=== PATIENT | female | born 1990 | race Caucasian/White ===

== ENCOUNTER 2017-02-06 10:00 | Inpatient (IN) ==
--- OUTSIDE RECORDS SUMMARY | 2017-02-11 | External Medical Summary | Continuity of Care Document ---
:1990 Author Organization [facility] Address [address] [place], [place] [id number] Phone Care Team Providers Name Role Phone Antonietta Hoffman DO Unavailable Unavailable Allergies, Adverse Reactions, Alerts Substance Reaction Severity Status No Known Drug Allergies Unknown Active Medications Medication Instructions Dosage Effective Dates Status Comments (start - stop) OMEPRAZOLE take 2 capsule by - Active (unknown strength) oral route every day before a meal ZANTAC (unknown take 1 tablet by - Active strength) oral route every day at bedtime 28 mg take 1 tablet by Not Available - Active iron-800 mcg oral route every tablet day Problems Condition Effective Dates (start - stop) Clinical Status Pap Smear Screening, Cervix - Encntr for suprvsn of normal first - preg, third trimester 34 weeks gestation of - 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) - (routine) w/o abn findings Pap Smear Screening, Cervix Encntr for suprvsn of normal first - preg, third trimester Type O blood, Rh negative - 32 weeks gestation of - Matern care for oth or susp poor fetl - grth, 2nd tri, unsp 20 weeks gestation of - Matern care for oth or susp poor fetl Mar-27-2017 - grth, 2nd tri, unsp Encntr for suprvsn of normal first - preg, second trimester 16 weeks gestation of - Partial placenta previa NOS or w/out - hemorrhage, third trimester Encntr for suprvsn of normal first - preg, third trimester 34 weeks gestation of - Diseases of the dgstv sys comp , first trimester Encntr screen for infections w sexl - mode of transmiss Encounter for screening for oth - infec/parastc diseases Encntr for suprvsn of normal first - preg, first trimester Encounter for screening of - mother 10 weeks gestation of - Encntr for suprvsn of normal first - preg, first trimester 12 weeks gestation of - Encntr for suprvsn of normal first - preg, first trimester 12 weeks gestation of - Type O blood, Rh negative - Encntr for suprvsn of normal first - preg, second trimester 20 weeks gestation of - Type O blood, Rh negative - Encntr for suprvsn of normal first - preg, second trimester 24 weeks gestation of - Type O blood, Rh negative - Encntr for suprvsn of normal first - preg, third trimester 28 weeks gestation of - Encntr for suprvsn of normal first - preg, third trimester Type O blood, Rh negative - 30 weeks gestation of - Encntr for suprvsn of normal first - preg, third trimester Type O blood, Rh negative - 36 weeks gestation of - Procedures Procedure Date OB Visit No 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 Provider: Dinesh OJYA, first preg, third 7 700 Nikky PO Box trimesterType O Medical Gurinder L, 1522, blood, Rh Center [address] [place] [address], [email or web address] weeks [place] Garrett, gestation of 120, Center , [place], [facility] 120, [place] MAJANO, tel:[phone] [place], , [place]. [id number]. tel: tel:[phone] Jono [place] Encntr for Gurinder Referring In Womens suprvsn of normal 1-201 Nikky. Provider: Dinesh JOYA, first preg, third 7 700 Nikky PO Box [email or web address] weeks Medical Gurinder L, 1522, gestation of Center [address] [place] [address], Mel[place] Garrett, 120, Center [id number], [place], [facility] 120, [place] MAJANO, tel:[phone] [place], , [place]. [id number]. tel: tel:[phone] Jono [place] Partial placenta Gurinder Referring In Womens Ultrasound previa NOS or 1-201 Nikky. Provider: Dinesh JOYA, w/out hemorrhage, 7 700 Nikky PO Box third Medical Gurinder L, 1522, trimesterEncntr Center [address] [place] [address], for suprvsn of Mel[place] Garrett, normal first 120, Center [id number], preg, third [place], [facility] 120, [place] [email or web address] weeks [place] MAJANO, tel:+[phone] gestation of [phone] [place], , [place]. [id number]. tel: tel:[phone] Jono [place] Encntr for Gurinder Referring In Womens suprvsn of normal 9-201 Nikky. Provider: Health PA, first preg, third 7 700 Nikky PO Box trimesterType O Medical Gurinder L, 1522, blood, Rh Center [address] [place] [address], weeks Meliton Garrett, gestation of 120, Center , [place], [facility] 120, [place] MAJANO, tel:[phone] [place], , [place]. [id number]. tel: tel:[phone] Jono [place] Encntr for Mckinley-0 Gurinder Referring In Womens suprvsn of normal 5-201 Nikky. Provider: Health PA, first preg, third 7 700 Nikky PO Box trimesterType O Medical Gurinder L, 1522, blood, Rh Center [address] [place] [address], [email or web address] weeks [place] Garrett, gestation of 120, Center , [place], [facility] 120, [place]JAN[place], tel:[phone] [place], , [place]. [id number]. tel: tel:[phone] Jono [place] Encntr for Gilbert-2 Gurinder Referring In Womens suprvsn of normal 1-201 Nikky. Provider: Health TOAN, first preg, third 7 700 Nikky PO Box [email or web address] weeks Medical Gurinder L, 1522, gestation of Center [address] [place] [address], [place], 120, Center [id number], [facility] [place], tel:+ [phone] [place], , [place]. [id number]. tel: tel:[phone] Jono [place] Encntr for September-2 Gurinder Referring In Womens suprvsn of normal 4-201 Nikky. Provider: Health TOAN, first preg, 7 700 Nikky PO Box second Medical Gurinder L, 1522, [email or web address] weeks Center [address] [place] [address], gestation of DrMeliton, pregnancyType O 120, Center [id number], blood, Rh [place], [facility] 120, [place] negative [place] MAJANO, tel:[phone] [place], , [place]. [id number]. tel: tel: [phone] Jono [place] Encntr for Apr-2 Gurinder Referring In Womens suprvsn of normal 6-201 Nikky. Provider: Dinesh JOYA, first preg, 7 700 Nikky PO Box second Medical Gurinder L, 1522, [email or web address] weeks Center [address] [place] [address], gestation of Meliton Garrett, pregnancyType O 120, Center [id number], blood, Rh [place], [facility] 120, [place] negative [place] MAJANO, tel: [phone] [place], , [place]. [id number]. tel: tel: [phone] Jono [place] Matern care for Apr-2 Gurinder Referring In Womens Ultrasound oth or susp poor 6-201 Nikky. Provider: Dinesh JOYA, fetl grth, 2nd 7 700 Antonietta PO Box tri, [email or web address] weeks Medical [place], 929 1522, gestation of Center [facility], Meliton Garrett, [place], 120, [place], , [place], [address]. [place], tel: tel: [phone] , [place]. tel: [phone] Jono [place] Matern care for Mar-2 Gurinder Referring In Womens oth or susp poor 7-201 Nikky. Provider: Dinesh JOYA, fetl grth, 2nd 7 700 Nikky PO Box tri, unspEncntr Medical Gurinder L, 1522, for suprvsn of [address], normal first [place] Garrett, preg, second 120, [place] [id number], [email or web address] weeks [facility] 120, [place] gestation of [place] MAJANO, tel: [phone] [place], , [place]. [id number]. tel: tel: [phone] Jono [place] Encntr for Feb-2 Gurinder Referring In Womens suprvsn of normal 7-201 Nikky. Provider: Dinesh JOYA, first preg, first 7 700 Nikky PO Box [email or web address] weeks Medical Gurinder L, 1522, gestation of [address], pregnancyType O [place], blood, Rh 120, Center [id number], negative [place] 120, [place] MAJANO, tel:[phone] [place], , [place]. [id number]. tel: tel: [phone] Jono [place] Encntr for Jul- Gurinder Referring In Womens Ultrasound suprvsn of normal 7-201 Nikky. Provider: Health TOAN, first preg, first 7 700 Antonietta PO Box [email or web address] weeks Medical [place], 929 1522, gestation of Center N [facility], Dr, Mel[place], [place], 120, [place], [id number], [place], [address]. [place], tel: tel:[phone] , [place]. tel: [phone] Jono [place] Encntr screen for Jul- Gurinder Referring In Womens infections w sexl 3-201 Nikky. Provider: Dinesh JOYA, mode of 7 700 Nikky PO Box transmissEncounte Medical Gurinder L, 1522, r for screening Center [address] [place] [address], for oth , Psychiatric, infec/parastc 120, [place] [id number], diseasesEncntr [place] [facility] 120, [place] for suprvsn of [place], tel: normal first [phone] [place], preg, first , [place]. [id number]. trimesterEncounte tel: tel:[phone] r for [phone] screening of [email or web address] weeks gestation of Jono [place] Diseases of the Gala Referring In Womens dgstv sys comp 3-201 Nicci. Provider: Dinesh JOYA, , first 7 700 Nikky PO Box trimester Medical Gurinder L, 1522, Center [facility] Dr Jamal, [facility] Liz [place], 120, Center [id number], [place] [facility] 120, [place] MAJANO, tel:[phone] [place], , [place]. [id number]. tel: tel: [phone] Jono [place] Encntr for gaming host Gala Referring In Womens exam (general) 9-201 Nicci. Provider: Health TOAN, (routine) w/o abn 6 700 Nikky PO Box findingsPap Smear Medical Gurinder L, 1522, Screening, Center 700 [place], CervixPap Smear , [facility] Medical [place], Screening, Cervix 120, Center [address] [id number], [place], [facility] , [place], [place], tel: [phone] [place], , [place]. [id number]. tel: tel: [phone] Jono [place] Jul- Gala In Womens Nicci. Health TOAN, 3 700 PO Box Medical 1522, Center [place], , [facility] [place], 120, [id number], [place], [place], tel: [phone] , [place]. tel: [phone] Family History Family Member Diagnosis Age At Onset No Family history of Family history not known. Patient is adopted. Immunizations Vaccine Date Status Comments Tdap completed Source: New Immunization Record Rhophylac completed Source: New Immunization Record Influenza, injectable, completed Source: Source Unspecified quadrivalent, preservative free, 3 yrs or older Payers Payer name Insurance type Covered democrat ID Authorization(s) [facility] [id number] [facility] [id number] [facility] [id number] Social History Type Description Quantity Date Captured Alcohol Use Details Caffeine Use Details Unknown Tobacco Use Status Unknown Smoking Status Never smoker Vital Signs Date / Height Weight BMI Pulse Blood Temperature Respiratory Body Head BMI Time: Rate Pressure Rate Surface Circumference percentile Area Unknown Chief Complaint And Reason For Visit Unknown Chief Complaint And Reason For Visit Reason For Referral Reason For Referral Unknown Plan Of Care Date Type Action Status Goal Lifestyle education regarding completed diet Appointment Darline Marroquin BOOKED Appointment Darline Marroquin BOOKED Appointment Darline Marroquin BOOKED Future Order: Lab Order Pap Smear With HPV Reflex If Ordered ASCUS ([id number]) Future Order: Radiology Order Complete OB Ultrasound > 14 Ordered Weeks ([id number]) Future Order: Radiology Order Ultrasound, OB Limited ([id number]) Ordered Future Order: Radiology Order Nuchal Translucency ([id number]) Ordered Date Type Problem Goal Intervention Status Start Date Unknown. History Of Present Illness Encounter Date Complaint History Of Present Illness This patient has no known history of present illness Functional Status Encounter Date Functional Assessment Cognitive Assessment Unknown Medications Administered Medication Instructions Dosage Effective Dates (start - stop) Status Comments Drug Treatment Unknown Instructions Date Instruction Additional Information sexual activity exercise indications for ultrasound influenza vaccine environmental / work hazards travel tobacco (ask, advise, assess, assist and arrange) alcohol illicit / recreational drugs use of any medications (including supplements, vitamins, herbs, OTC drugs) Acog docs HIV and other routine tests risk factors identified by history anticipated course of care nutrition and weight gain counseling, special diet toxoplasmosis precautions (cats / raw meat) smoking counseling domestic violence seat belt use childbirth classes / hospital facilities hospital registration genetic testing new ob handbook Zika virus assessment & precautions Lifestyle education regarding diet Related to Body mass index 26.0-26.9 Giving encouragement to exercise Related to Body mass index 26.0-26.9
--- OUTSIDE RECORDS SUMMARY | 2017-02-11 | External Medical Summary | Continuity of Care Document ---
:1990 Author Organization [facility] Address [address] [place], [place] [address] Phone Care Team Providers Name Role Phone Antonietta Hoffman DO Unavailable Unavailable Allergies, Adverse Reactions, Alerts Substance Reaction Severity Status No Known Drug Allergies Unknown Active Medications Medication Instructions Dosage Effective Dates Status Comments (start - stop) ZANTAC (unknown take 1 tablet by - Active strength) oral route every day at bedtime 28 mg take 1 tablet by Not Available - Active iron-800 mcg oral route every tablet day Problems Condition Effective Dates (start - stop) Clinical Status Pap Smear Screening, Cervix - Encntr for suprvsn of normal first - preg, third trimester 30 weeks gestation of - Type O blood, Rh negative - 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) - (routine) w/o abn findings Pap Smear Screening, Cervix Type O blood, Rh negative - 32 weeks gestation of - Encntr for suprvsn of normal first - preg, third trimester Matern care for oth or susp poor fetl - grth, 2nd tri, unsp 20 weeks gestation of - Matern care for oth or susp poor fetl - grth, 2nd tri, unsp Encntr for suprvsn of normal first - preg, second trimester 16 weeks gestation of - Diseases of the [...] third trimester 28 weeks gestation of - Procedures Procedure Date OB Visit No Charge Results Test Name Date and Time Measure Units Reference Range Abnormal Flag Comments Unknown Advance Directives Directive Yes / No Effective Date File Name Unknown Encounters Encounter Practice Location Reason(s) Diagnoses Date Provider Care Team Description For Visit Members Jono [place] Type O blood, Rh Gurinder Referring In Womens [email or web address] weeks 9-201 Nikky. Provider: [facility], gestation of 7 700 Nikky PO Box pregnancyEncntr Liz [place] L, 1522, for suprvsn of Center 700 [place], normal first [place] Garrett, preg, third 120, Center [id number], trimester Mel[place] 120, [place] MAJANO, tel:[phone] [place], [address] , [place]. [id number]. tel: tel: [phone] Jono [place] Encntr for Gurinder Referring In Womens suprvsn of normal 5-201 Nikky. Provider: Health PA, first preg, third 7 700 Nikky PO Box [email or web address] weeks Medical Gurinder L, 1522, gestation of [address], pregnancyType O [place], blood, Rh 120, Center , negative [place], [place] 120, [place] MAJANO, tel:[phone] [place], , [place]. [id number]. tel: tel:[phone] Jono [place] Encntr for Gilbert-2 Gurinder Referring In Womens suprvsn of normal 1-201 Nikky. Provider: Health PA, first preg, third 7 700 Nikky PO Box [email or web address] weeks Medical Gurinder L, 1522, gestation of [address], Mel[place] Garrett, 120, Center [id number], [place], [place] 120, [place] MAJANO, tel:[phone] [place], , [place]. [id number]. tel: tel:[phone] Jono [place] Encntr for May-2 Gurinder Referring In Womens suprvsn of normal 4-201 Nikky. Provider: Health PA, first preg, 7 700 Nikky PO Box second Medical Gurinder L, 1522, [id number] weeks [address], gestation of Mel[place] Garrett, pregnancyType O 120, Center [id number], blood, Rh [place], [place] 120, [place] negative [place] MAJANO, tel:[phone] [place], , [place]. [id number]. tel: tel:[phone] Jono [place] Encntr for Apr-2 Gurinder Referring In Womens suprvsn of normal 6-201 Nikky. Provider: Health PA, first preg, 7 700 Nikky PO Box second Medical Gurinder L, 1522, [email or web address] weeks [address], gestation of Meliton Garrett, pregnancyType O 120, Center [id number], blood, Rh [place], [place] 120, [place] negative Ivan MAJANO, tel:[phone] [place], , [place]. [id number]. tel:+[phone] tel: [phone] Jono [place] Matern care for Apr-2 Gurinder Referring In Womens Ultrasound oth or susp poor 6-201 Nikky. Provider: Dinesh JOYA, fetl grth, 2nd 7 700 Antonietta PO Box tri, [email or web address] weeks Medical [place], 929 1522, gestation of Center [facility], Meliton Garrett, [place], 120, [place], [id number], [place], [address]. [place], tel: tel:[phone] , [place]. tel: [phone] Jono [place] Matern care for Mar-2 Gurinder Referring In Womens oth or susp poor 7-201 Nikky. Provider: Dinesh JOYA, fetl grth, 2nd 7 700 Nikky PO Box tri, unspEncntr Medical Gurinder L, 1522, for suprvsn of [address], normal first [place] Garrett, preg, second 120, [place] , [email or web address] weeks [place] [facility] 120, [place] gestation of [place] MAJANO, tel: [phone] [place], , [place]. [id number]. tel: tel: [phone] Jono Fabianntr for Feb-2 Gurinder Referring In Womens suprvsn of normal 7-201 Nikky. Provider: Dinesh JOYA, first preg, first 7 700 Nikky PO Box [email or web address] weeks Medical Gurinder L, 1522, gestation of [address], pregnancyType O [place] Garrett, blood, Rh 120, [place] [id number], negative [place], [place] 120, [place] MAJANO, tel:[phone] [place], , [place]. [id number]. tel: tel: [phone] Jono [place] Encntr for Feb-2 Gurinder Referring In Womens Ultrasound suprvsn of normal 7-201 Nikky. Provider: Dinesh JOYA, first preg, first 7 700 Antonietta PO Box [email or web address] weeks Medical [place], 929 1522, gestation of [facility], Mel[place], [place], 120, [place], [id number], [place], [address]. [place], tel:+ tel:[phone] , [place]. tel: [phone] Jono Fabianntthai screen for Gurinder Referring In Womens infections w sexl 3-201 Nikky. Provider: Dinesh JOYA, mode of 7 700 Nikky PO Box transmissEncounte Medical Gurinder L, 1522, r for screening Center [address] [place] [address], for oth , [facility], infec/parastc 120, [place] [id number], [facility], [place] for suprvsn of [place] MAJANO, tel: normal first [place], preg, first , [place]. [id number]. trimesterEncounte tel: tel: r for [phone] screening of [id number] weeks gestation of Associates [place] Diseases of the Gala Referring In Womens dgstv sys comp 3-201 Nicci. Provider: Dinesh JOYA, , first 7 700 Nikky PO Box trimester Medical Gurinder L, 1522, Center [facility] [place], Dr [facility] Liz MAJANO, 120, [place] [id number], [facility], [place], tel:[phone] [place], , [place]. [id number]. 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 Provider: Dinesh JOYA, (routine) w/o abn 6 700 Nikky PO Box findingsPap Smear [place], 1522, Screening, Center [facility] [place], CervixPap Smear , [facility] Liz [place], Screening, Cervix 120, Center [id number], [place] [facility] 120, [place] MAJANO, tel:[phone] [place], , [place]. [id number]. tel: tel: [phone] Jono [place] Gala In Womens 1-201 Nicci. [facility], 3 700 PO Box [facility] 1522, [place] Dr Jamal, [facility], 120, [id number], [place], [place], tel:-[phone] , [place]. tel: [phone] Family History Family Member Diagnosis Age At Onset No Family history of Family history not known. Patient is adopted. Immunizations Vaccine Date Status Comments Rhophylac completed Source: New Immunization Record Influenza, injectable, completed Source: Source Unspecified quadrivalent, preservative free, 3 yrs or older Payers Payer name Insurance type Covered libertarian ID Authorization(s) [facility] [id number] [facility] [id number] Social History Type Description Quantity Date Captured Alcohol Use Details Caffeine Use Details Unknown Tobacco Use Status Unknown Smoking Status Never smoker Vital Signs Date / Height Weight BMI Pulse Blood Temperature Respiratory Body Head BMI Time: Rate Pressure Rate Surface Circumference percentile Area 3 3:03 kg/m PM eter (2) 161.40 31.5 129/69 -2017 lbs 2 mm[Hg] 3:09 kg/m PM eter (2) Chief Complaint And Reason For Visit Unknown [...] Complete OB Ultrasound > 14 Ordered Weeks ([id number]) Future Order: Radiology Order Nuchal Translucency ([id number]) Ordered Date Type Problem Goal Intervention Status [...] medications (including supplements, vitamins, herbs, OTC drugs) smoking counseling domestic violence Acog docs HIV and other routine tests risk factors identified by history anticipated course of care nutrition and weight gain counseling, special diet toxoplasmosis precautions (cats / raw meat) seat belt use childbirth classes / hospital facilities hospital registration genetic testing new ob handbook Zika virus assessment & precautions Lifestyle education regarding diet Related to Body mass index 26.0-26.9 Giving encouragement to exercise Related to Body mass index 26.0-26.9
--- OUTSIDE RECORDS SUMMARY | 2017-02-11 | External Medical Summary | Continuity of Care Document ---
:1990 Author Organization [facility] Address [address] [place], [place] [phone] Phone Care Team Providers Name Role Phone [...] Pap Smear Screening, Cervix - Encntr for infection prevention practitioner exam (general) - (routine) w/o abn findings Pap Smear Screening, Cervix 32 weeks gestation of - Encntr for suprvsn of normal first - preg, third trimester Type O blood, Rh negative - Encntr for suprvsn of normal first - preg, third trimester 34 weeks gestation of - Matern care for [...] weeks gestation of - [facility] sys [facility] , first trimester Encntr screen for infections w sexl - mode of transmiss Encntr for suprvsn of normal first - preg, first trimester Encounter for screening for oth - infec/parastc diseases Encounter for screening of - mother 10 [...] of normal first - preg, second trimester Type O blood, Rh negative - 24 weeks gestation of - Encntr for suprvsn of normal first - preg, third trimester 28 weeks gestation of - Encntr for suprvsn of normal first - preg, third trimester Type O blood, Rh negative - 30 weeks gestation of - Encntr for suprvsn of normal first - preg, third trimester 36 weeks gestation of - Type O blood, Rh negative - Type O blood, Rh negative - Encntr for suprvsn of normal first - preg, third trimester 37 weeks gestation of - Procedures Procedure Date Unknown Results Test Name Date and Time Measure Units Reference Range Abnormal Flag Comments Unknown Advance Directives Directive Yes / No Effective Date File Name Unknown Encounters Encounter Practice Location Reason(s) Diagnoses Date Provider Care Team Description For Visit Members Jono Love Type O blood, Rh Dec-2 Gurinder Referring In Womens negativeEncntr 3-201 Nikky. Provider: Dinesh JOYA, for suprvsn of 7 700 Nikky [address] normal first Medical Gurinder L, 1522, preg, third Center [address] [place] [address], [email or web address] weeks , [facility] [place], gestation of 120, [place] , Ivan, [facility] 120, Ivan MAJANO, tel:[phone] [place], , [place]. [id number]. tel: tel:[phone] Jono [place] Encntr for Dec- Gurinder Referring In Womens suprvsn of normal 6-201 Nikky. Provider: Dinesh JOYA, first preg, third 7 700 Nikky PO Box [id number] weeks Medical Gurinder L, 1522, gestation of Center [address] [place] [address], pregnancyType O Dr [facility] [place], blood, Rh 120, [place] [id number], negative Ivan [facility] 120, [place] Ivan MAJANO, tel:[phone] [place], , [place]. [id number]. tel: tel:[phone] Jono [place] Dec-0 Gurinder In Womens 7-201 Nikky. Dinesh JOYA, 7 700 PO Box Medical 1522, [address] Dr Jamal [facility] [place], 120, [id number], [place], [place], tel:[phone] , [place]. tel: [phone] Jono [place] Encntr for Nov- Gurinder Referring In Womens suprvsn of normal 1-201 Nikky. Provider: Dinesh JOYA, first preg, third 7 700 Nikky PO Box [email or web address] weeks Medical Gurinder L, 1522, gestation of Center [address] [place] [address], Dr [facility] [place], 120, [place] [id number], Ivan [facility] 120, [place] Ivan MAJANO, tel:[phone] [place], , [place]. [id number]. tel: tel:[phone] Associates [facility] Partial placenta Nov-3 Gurinder Referring In Womens Ultrasound previa NOS or 1-201 Nikky. Provider: Dinesh JOYA, w/out hemorrhage, 7 700 Nikky PO Box third Medical Gurinder L, 1522, trimesterEncntr Center [address] [place] [address], for suprvsn of [place], normal first 120, Center [id number], preg, third Ivan [facility] 120, [place] [email or web address] weeks Ivan MAJANO, tel:+ gestation of [phone] [place], , [place]. [id number]. tel: tel:[phone] [facility] 32 weeks Nov- Gurinder Referring In Womens gestation of 9-201 Nikky. Provider: Dinesh JOYA, pregnancyEncntr 7 700 Nikky PO Box for suprvsn of Medical Gurinder L, 1522, normal first Center [address] [place] [address], preg, third [place], trimesterType O 120, Center [id number], blood, Rh Ivan, [facility] 120, [place] negative Ivan MAJANO, tel:[phone] [place], , [place]. [id number]. tel: tel:[phone] Jono Fabianntthai for Nov-0 Gurinder Referring In Womens suprvsn of normal 5-201 Nikky. Provider: Dinesh JOYA, first preg, third 7 700 Nikky PO Box trimesterType O Medical Gurinder L, 1522, blood, Rh Center [address] [place], [email or web address] weeks [place], gestation of 120, Center [id number], [place], [facility] 120, [place] Ivan MAJANO, tel:[phone] [place], , [place]. [id number]. tel: tel:[phone] Jono Fabianntthai for Gilbert-2 Gurinder Referring In Womens suprvsn of normal 1-201 Nikky. Provider: Dinesh JOYA, first preg, third 7 700 Nikky PO Box weeks Medical Gurinder L, 1522, gestation of Center [address] [place], [place], 120, Center [id number], Ivan, [facility] 120, [place] Ivan MAJANO, tel:[phone] [place], , [place]. [id number]. tel: tel: [phone] Jono [place] Encntr for May-2 Gurinder Referring In Womens suprvsn of normal 4-201 Nikky. Provider: Health TOAN, first preg, 7 700 Nikky PO Box second Medical Gurinder L, 1522, trimesterType O Center 700 [place], blood, Rh [place], [email or web address] weeks 120, [place] [id number], gestation of [facility] 120, [place] Ivan MAJANO, tel:[phone] [place], , [place]. [id number]. tel: tel: [phone] Jono [place] Encntr for Apr-2 Gurinder Referring In Womens suprvsn of normal 6-201 Nikky. Provider: Dinesh JOYA, first preg, 7 700 Nikky PO Box second Medical Gurinder L, 1522, [id number] weeks Center [address] [place], gestation of [place], pregnancyType O 120, [place] [id number], blood, Rh Ivan, [facility] 120, [place] negative Ivan MAJANO, tel:[phone] [place], , [place]. [id number]. tel: tel: [phone] Jono [place] Matern care for Apr-2 Gurinder Referring In Womens Ultrasound oth or susp poor 6-201 Nikky. Provider: Dinesh JOYA, fetl meghan, 2nd 7 700 [place] PO Box tri, unsp20 weeks Medical [place], 929 1522, gestation of Center [facility], [place], [place], 120, [place], [id number], [place], [address]. [place], tel:+ tel: [phone] , [place]. tel: [phone] Jono [place] Matern care for Mar-2 Gurinder Referring In Womens oth or susp poor 7-201 Nikky. Provider: Dinesh JOYA, fetl grth, 2nd 7 700 Nikky PO Box tri, unspEncntr Medical Gurinder L, 1522, for suprvsn of Center [address] [place] [address], normal first [place], preg, second 120, [place] [id number], [email or web address] weeks [place], [place] 120, [place] gestation of Ivan MAJANO, tel:+ [phone] [place], , [place]. [id number]. tel: tel: [phone] Jono [place] Encntr for Feb-2 Gurinder Referring In Womens suprvsn of normal 7-201 Nikky. Provider: Dinesh JOYA, first preg, first 7 700 Nikky PO Box [email or web address] weeks Medical Guirnder L, 1522, gestation of [address], pregnancyType O [place], blood, Rh 120, [place] , negative [place], [facility] 120, [place] vIan MAJANO, tel:[phone] [place], , [place]. [id number]. tel: tel: [phone] Jono [place] Encntr for Feb-2 Gurinder Referring In Womens Ultrasound suprvsn of normal 7-201 Nikky. Provider: Dinesh JOYA, first preg, first 7 700 [place] PO Box weeks Medical [place], 929 1522, gestation of Center N [facility], [place], [place], 120, [place], , [place], [address]. [place], tel: tel: [phone] , [place]. tel: [phone] Jono [place] Encntr screen for Feb-1 Gurinder Referring In Womens infections w sexl 3-201 Nikky. Provider: Dinesh JOYA, mode of 7 700 Nikky PO Box transmissEncntr Medical Gurinder L, 1522, for suprvsn of Center [address] [place] [address], normal first [place], preg, first 120, [place] , trimesterEncounte Ivan [facility] 120, [place] r for screening Ivan MAJANO, tel:+[phone] for oth [phone] [place], infec/parastc , [place]. [id number]. diseasesEncounter tel: tel:[phone] for [phone] screening of weeks gestation of [facility] Diseases of the [place]ala Referring In Womens dgstv sys comp Nicci. Provider: Dinesh JOYA, , first 7 700 Nikky PO Box trimester Medical Gurinder L, 1522, Center 700 Jamal, , [facility], 120, [place] [id number], Ivan, [facility] 120, Ivan MAJANO, tel:[phone] [place], , [place]. [id number]. tel: tel: [phone] Jono [place] Encntr for infection prevention practitioner Gala Referring In Womens exam (general) - Nicci. Provider: Dinesh JOYA, (routine) w/o abn 6 700 Nikky PO Box findingsPap Smear Medical Gurinder L, 1522, Screening, Center 700 [place], CervixPap Smear , [facility], Screening, Cervix 120, [place] [id number], [facility], Ivan MAJANO, tel:[phone] [place], , [place]. [id number]. tel: tel:[phone] Jono [place] Gala In Womens - Nicci. Dinesh JOYA, 3 700 PO Box Medical 1522, Center Jamal, , [facility] [place], 120, [id number], [place], [place], tel:[phone] , [place]. tel: [phone] Family History Family Member Diagnosis Age At Onset No Family history of Family history not known. Patient is adopted. Immunizations Vaccine Date Status Comments Tdap completed Source: New Immunization Record Rhophylac completed Source: New Immunization Record Influenza, injectable, completed Source: Source Unspecified quadrivalent, preservative free, 3 yrs or older Payers Payer name Insurance type Covered green party ID Authorization(s) [facility] [id number] [facility] [id number] [facility] [id number] Social History Type Description Quantity Date Captured Unknown Vital Signs Date / Height Weight BMI [...] Complete OB Ultrasound > 14 Ordered Weeks (10566) Future Order: Radiology Order Ultrasound, OB Limited ([id number]) Ordered Future Order: Radiology Order Nuchal Translucency ([id number]) Ordered Date Type Problem Goal Intervention Status [...] supplements, vitamins, herbs, OTC drugs) smoking counseling Acog docs HIV and other routine tests risk factors identified by history anticipated course of care nutrition and weight gain counseling, special diet toxoplasmosis precautions (cats / raw meat) domestic violence seat belt use childbirth classes / hospital facilities hospital registration genetic testing new ob handbook Zika virus assessment & precautions Lifestyle education regarding diet Related to Body mass index 26.0-26.9 Giving encouragement to exercise Related to Body mass index 26.0-26.9
--- OUTSIDE RECORDS SUMMARY | 2017-02-11 00:01 | External Medical Summary | Continuity of Care Document ---
:1990 Author Organization [facility] Address [address] [place], [place] [phone] Phone Care Team Providers Name Role Phone [...] third trimester 37 weeks gestation of - Type O blood, Rh negative - Pap Smear Screening, Cervix Encntr for roustabout head exam (general) - (routine) w/o abn findings 32 weeks gestation of - Encntr for [...] second trimester 16 weeks gestation of - Decreased movements, third - trimester, unsp 38 weeks gestation of - Partial placenta previa [...] - Type O blood, Rh negative - 24 weeks gestation of - Encntr for suprvsn of normal first - preg, second trimester Type O blood, Rh negative - 28 weeks gestation of - Encntr for suprvsn of normal first - preg, third trimester 30 weeks gestation of - Encntr for suprvsn of normal first - preg, third trimester Type O blood, Rh negative - Encntr for suprvsn of normal first - preg, third trimester Type O blood, Rh negative - 36 weeks gestation of - Encntr for suprvsn of normal first - preg, third trimester 39 weeks gestation of - Type O blood, Rh negative - Active Procedures Procedure Date OB Visit No Charge Results Test Name Date and Time Measure Units Reference Range Abnormal Flag Comments Unknown Advance Directives Directive Yes / No Effective Date File Name Unknown Encounters Encounter Practice Location Reason(s) Diagnoses Date Provider Care Team Description For Visit Members [facility] Encntr for Sep-0 Gurinder Referring In Womens suprvsn of normal 6-201 Nikky. Provider: Dinesh JOYA, first preg, third 7 700 Nikky PO Box [id number] weeks Medical Gurinder L, 1522, gestation of Center [address] [place] [address], pregnancyType O Dr Rust Liz MAJANO, blood, Rh 120, [place] [id number], negative Ivan [place] 120, [place] Ivan MAJANO, tel:[phone] [place], , [place]. [id number]. tel: tel:[phone] Jono [place] Decreased Aug-2 Martinez Referring In Womens movements, third 9-201 Kim. Provider: Dinesh JOYA, trimester, unsp38 7 700 Nikky PO Box weeks gestation Medical Gurinder L, 1522, of Center [facility] [place], Dr Meliton Liz [place], 120, [place] [id number], Ivan Rust 120, [place] Ivan MAJANO, tel:[phone] [place] , [place]. [id number]. tel: tel:[phone] Jono [place] Encntr for Aug-2 Gurinder Referring In Womens suprvsn of normal 3-201 Nikky. Provider: Dinesh JOYA, first preg, third 7 700 Nikky PO Box [email or web address] weeks Medical Gurinder L, 1522, gestation of Center [address] [place] [address], pregnancyType O Dr Rust Liz MAJANO, blood, Rh 120, [place] [id number], negative [place] 120, [place] Ivan MAJANO, tel:[phone] [place], , [place]. [id number]. tel: tel:[phone] Jono [place] Encntr for Gurinder Referring In Womens suprvsn of normal 6-201 Nikky. Provider: Dinesh JOYA, first preg, third 7 700 Nikky PO Box trimesterType O Medical Gurinder L, 1522, blood, Rh Center [address] [place] [address], [email or web address] weeks [place], gestation of 120, Center , [place], Rust 120, [place] Ivan MAJANO, tel:[phone] [place], , [place]. [id number]. tel: tel:[phone] Jono [place] Encntr for Gurinder Referring In Womens suprvsn of normal 1-201 Nikky. Provider: Dinesh JOYA, first preg, third 7 700 Nikky PO Box [email or web address] weeks Medical Gurinder L, 1522, gestation of Center [address] [place] [address], [place], 120, Center [id number], [place], [place] 120, [place] Ivan MAJANO, tel:[phone] [place], , [place]. [id number]. tel: tel:[phone] Jono [place] Partial placenta Gurinder Referring In Womens Ultrasound previa NOS or 1-201 Nikky. Provider: Dinesh JOYA, w/out hemorrhage, 7 700 Nikky PO Box third Medical Gurinder L, 1522, trimesterEncntr Center [address] [place] [address], for suprvsn of [place], normal first 120, Center [id number], preg, third [place], Rust 120, [place] [id number] weeks Ivan MAJANO, tel:[phone] gestation of [phone] [place], , [place]. [id number]. tel: tel:[phone] Jono [place] 32 weeks Gurinder Referring In Womens gestation of 9-201 Nikky. Provider: Dinesh JOYA, pregnancyEncntr 7 700 Nikky PO Box for suprvsn of Medical Gurinder L, 1522, normal first Center [address] [place] [address], preg, third [place], trimesterType O 120, Center [id number], blood, Rh Ivan, [place] 120, [place] negative Ivan MAJANO, tel: [phone] [place], , [place]. [id number]. tel: tel:[phone] Jono [place] 30 weeks Mckinley-0 Gurinder Referring In Womens gestation of 5-201 Nikky. Provider: Dinesh JOYA pregnancyEncntr 7 700 Nikky PO Box for suprvsn of Medical Gurinder L, 1522, normal first Center 700 [place], preg, third [place], trimesterType O 120, Center [id number], blood, Rh Ivan, [place] 120, [place] negative Ivan MAJANO, tel:[phone] [place], , [place]. [id number]. tel: tel:[phone] Jono [place] 28 weeks Oct- Gurinder Referring In Womens gestation of 1-201 Nikky. Provider: Dinesh JOYA pregnancyEncntr 7 700 Nikky PO Box for suprvsn of Medical Gurinder L, 1522, normal first Center 700 [place], preg, third [place], trimester 120, Center [id number], Ivan, [place] 120, [place] Ivan MAJANO, tel: [phone] [place], , [place]. [id number]. tel: tel:[phone] Jono [place] 24 weeks September- Gurinder Referring In Womens gestation of 4-201 Nikky. Provider: Dinesh JOYA pregnancyEncntr 7 700 Nikky PO Box for suprvsn of Medical Gurinder L, 1522, normal first Center 700 [place], preg, second [place], trimesterType O 120, Center [id number], blood, Rh [place], [place] 120, [place] negative Ivan MAJANO, tel: [phone] [place], , [place]. [id number]. tel: tel:[phone] Jono [place] Encntr for Aug-2 Gurinder Referring In Womens suprvsn of normal 6-201 Nikky. Provider: Dinesh JOYA, first preg, 7 700 Nikky PO Box second Medical Gurinder L, 1522, [email or web address] weeks Center [address] [place] [address], gestation of [place] Garrett, pregnancyType O 120, [place] , blood, Rh [place], Rust 120, [place] negative Ivan MAJANO, tel:[phone] [place], , [place]. [id number]. tel: tel: [phone] Jono [place] Matern care for Apr-2 Gurinder Referring In Womens Ultrasound oth or susp poor 6-201 Nikky. Provider: Dinesh JOYA, fetl grth, 2nd 7 700 [place] PO Box tri, [email or web address] weeks Medical [place], 929 1522, gestation of [facility], [place], [place], 120, [place], , [place], [address]. [place], tel: tel:[phone] , [place]. tel: [phone] Jono [place] Matern care for Mar-2 Gurinder Referring In Womens oth or susp poor 7-201 Nikky. Provider: Dinesh JOYA, fetl grth, 2nd 7 700 Nikky PO Box tri, unspEncntr Medical Gurinder L, 1522, for suprvsn of [address], normal first [place], preg, second 120, Center [id number], [id number] weeks Ivan Rust 120, [place] gestation of Ivan MAJANO, tel:[phone] [place], , [place]. [id number]. tel: tel: [phone] Jono [place] Encntr for Feb-2 Gurinder Referring In Womens suprvsn of normal 7-201 Nikky. Provider: Dinesh JOYA, first preg, first 7 700 Nikky PO Box [id number] weeks Medical Gurinder L, 1522, gestation of [address], pregnancyType O [place], blood, Rh 120, Center , negative Ivan, Rust 120, [place] Ivan MAJANO, tel:[phone] [place], , [place]. [id number]. tel: tel: [phone] [facility] Encntr for Jul-2 Gurinder Referring In Womens Ultrasound suprvsn of normal - Nikky. Provider: Dinesh JOYA, first preg, first 7 700 [place] PO Box [id number] weeks Medical [place], 929 1522, gestation of Center N [facility], , [place], [place], 120, [place], [id number], [place], [address]. [place], tel:+ tel: [phone] , [place]. tel: [phone] [facility] Encntr screen for Jul- Gurinder Referring In Womens infections w sexl -201 Nikky. Provider: Dinesh JOYA, mode of 7 700 Nikky PO Box transmissEncounte Medical Gurinder L, 1522, r for screening Center [address] [place] [address], for oth , [facility], infec/parastc 120, [place] [id number], diseases[facility]ntr [facility] 120, [place] for suprvsn of [place], [place], tel: normal first [id number] [place], preg, first , [place]. [id number]. trimesterEncounte tel: tel: r [phone] screening of [id number] weeks gestation of [facility] Diseases of the [place]ala Referring In Womens dgstv sys comp Nicci. Provider: Dinesh JOYA, , first 7 700 Nikky PO Box trimester Medical Gurinder L, 1522, Center [facility] [place], , Rust Liz [place], 120, [place] [id number], [facility] 120, [place] Ivan MAJANO, tel:[phone] [place], , [place]. [id number]. tel: tel: [phone] [facility] Pap Smear Apr- Gala Referring In Womens Screening, Nicci. Provider: Dinesh JOYA, CervixPap Smear 6 700 Nikky PO Box Screening, Medical Gurinder L, 1522, CervixEncntr for Center 700 [place], roustabout head exam , Rust Medical [place], (general) 120, Center Dr , (routine) w/o abn Ivan Rust 120, [place] findings [place], tel: [phone] [place], , [place]. [id number]. tel: tel: [phone] [facility] Jul- [place]ala In Womens 1-201 Nicci. [facility], 3 700 [facility] Medical 1522, [place], , [place] MAJANO, 120, [id number], [place], [place], tel: [phone] , [place]. tel: [phone] Family History Family Member Diagnosis Age At Onset No Family history of Family history not known. Patient is adopted. Immunizations Vaccine Date Status Comments Tdap completed Source: New Immunization Record Rhophylac completed Source: New Immunization Record Influenza, injectable, completed Source: Source Unspecified quadrivalent, preservative free, 3 yrs or older Payers Payer name Insurance type Covered alliance party ID Authorization(s) [facility] [id number] [facility] [id number] [facility] [id number] Social History Type Description Quantity Date Captured [...] regarding completed diet Appointment Darline Marroquin BOOKED Future Order: Lab Order Pap Smear With HPV Reflex If Ordered ASCUS ([id number]) Future Order: Radiology Order Complete OB Ultrasound > 14 Ordered Weeks ([id number]) Future Order: Radiology Order Ultrasound, OB Limited ([id number]) Ordered Future Order: Radiology Order Nuchal Translucency ([id number]) Ordered Date Type Problem Goal Intervention Status [...]
--- OUTSIDE RECORDS SUMMARY | 2017-02-11 00:01 | External Medical Summary | Continuity of Care Document ---
:1990 Author Organization [facility] Address [address] [place], [place] [id number] Phone Care Team Providers Name Role Phone [...] Clinical Status Pap Smear Screening, Cervix - Partial placenta previa NOS or w/out - hemorrhage, third trimester Encntr for suprvsn of normal first - preg, third trimester 34 weeks gestation of - Encntr for chicken hatchery helper exam (general) - (routine) w/o abn findings [...] weeks gestation of - Procedures Procedure Date Ultrasnd exam, preg uterus, limited Results Test Name Date and Time Measure Units Reference Range Abnormal Flag Comments Unknown Advance Directives Directive Yes / No Effective Date File Name Unknown Encounters Encounter Practice Location Reason(s) Diagnoses Date Provider Care Team Description For Visit Members Jono [place] Encntr for Gurinder Referring In Womens suprvsn of normal 6-201 Nikky. Provider: Dinesh JOYA, first preg, third 7 700 Nikky PO Box trimesterType O Medical Gurinder L, 1522, blood, Rh Center [address] [place] [address], [email or web address] weeks [place], gestation of 120, Center , [place], [facility] 120, [place] Ivan MAJANO, tel:[phone] [place], , [place]. [id number]. tel: tel:[phone] Jono [place] Encntr for Gurinder Referring In Womens suprvsn of normal 1-201 Nikky. Provider: Dinesh JOYA, first preg, third 7 700 Nikky PO Box [email or web address] weeks Medical Gurinder L, 1522, gestation of Center [address] [place] [address], [place], 120, [place] [id number], [place], [facility] 120, [place] Ivan MAJANO, tel:[phone] [place], , [place]. [id number]. tel: tel:[phone] Jono [place] Partial placenta Gurinder Referring In Womens Ultrasound previa NOS or 1-201 Nikky. Provider: Dinesh JOYA, w/out hemorrhage, 7 700 Nikky PO Box third Medical Gurinder L, 1522, trimesterEncntr Center [address] [place] [address], for suprvsn of Meliton Garrett, normal first 120, [place] [id number], preg, third [place], [facility] 120, [place] [email or web address] weeks Ivan MAJANO, tel:316 gestation of [phone] [place], , [place]. [id number]. tel: tel:[phone] Jono [place] Encntr for Gurinder Referring In Womens suprvsn of normal 9-201 Nikky. Provider: Dinesh JOYA, first preg, third 7 700 Nikky PO Box trimesterType O Medical Gurinder L, 1522, blood, Rh Center [address] [place] [address], [email or web address] weeks [place] Garrett, gestation of 120, Center [id number], [place], [facility] 120, [place] Ivan MAJANO, tel:[phone] [place], , [place]. [id number]. tel: tel:[phone] Jono [place] Encntr for Mckinley-0 Gurinder Referring In Womens suprvsn of normal 5-201 Nikky. Provider: Dinesh JOAY, first preg, third 7 700 Nikky PO Box trimesterType O Medical Gurinder L, 1522, blood, Rh Center [address] [place] [address], [email or web address] weeks [place] Garrett, gestation of 120, Center , [place], [facility] 120, [place] Ivan MAJANO, tel:[phone] [place], , [place]. [id number]. tel: tel:[phone] Jono [place] Encntr for Gilbert-2 Gurinder Referring In Womens suprvsn of normal 1-201 Nikky. Provider: Dinesh JOYA, first preg, third 7 700 Nikky PO Box [id number] weeks Medical Gurinder L, 1522, gestation of Center [address] [place] [address], [place], 120, [place] [id number], Ivan [facility] 120, [place] Ivan MAJANO, tel:[phone] [place], , [place]. [id number]. tel: tel:[phone] Jono [place] Encntr for September-2 Gurinder Referring In Womens suprvsn of normal 4-201 Nikky. Provider: Dinesh JOYA, first preg, 7 700 Nikky PO Box second Medical Gurinder L, 1522, [email or web address] weeks Center [address] [place] [address], gestation of Meliton Garrett, pregnancyType O 120, Center [id number], blood, Rh Ivan, [facility] 120, [place] negative Ivan MAJANO, tel:[phone] [place], , [place]. [id number]. tel: tel:[phone] Jono [place] Encntr for Apr-2 Gurinder Referring In Womens suprvsn of normal 6-201 Nikky. Provider: Dinesh JOYA, first preg, 7 700 Nikky PO Box second Medical Gurinder L, 1522, [email or web address] weeks Center [address] [place] [address], gestation of Meliton Garrett, pregnancyType O 120, Center , blood, Rh [place], [facility] 120, [place] negative Ivan MAJANO, tel:[phone] [place], , [place]. [id number]. tel: tel: [phone] Jono [place] Matern care for Apr-2 Gurinder Referring In Womens Ultrasound oth or susp poor 6-201 Nikky. Provider: Dinesh JOYA, fetl grth, 2nd 7 700 [place] PO Box tri, [email or web address] weeks Medical [place], 929 1522, gestation of [facility], Mel[place], [place], 120, [place], , [place], [address]. [place], tel: tel:[phone] , [place]. tel: [phone] Jono [place] Matern care for Mar-2 Gurinder Referring In Womens oth or susp poor 7-201 Nikky. Provider: Dinesh JOYA, fetl grjared, 2nd 7 700 Nikky PO Box tri, unspEncntr Medical Gurinder L, 1522, for suprvsn of [address], normal first [place], preg, second 120, Center [id number], [id number] weeks Ivan, [facility] 120, [place] gestation of Ivan MAJANO, tel: [phone] [place], , [place]. [id number]. tel: tel: [phone] Jono [place] Encntr for Feb-2 Gurinder Referring In Womens suprvsn of normal 7-201 Nikky. Provider: Dinesh JOYA, first preg, first 7 700 Nikky PO Box [email or web address] weeks Medical Gurinder L, 1522, gestation of [address], pregnancyType O [place], blood, Rh 120, Center [id number], negative Ivan [facility] 120, [place] Ivan MAJANO, tel:[phone] [place], , [place]. [id number]. tel: tel: [phone] [facility] Encntr for Fe-2 Gurinder Referring In Womens Ultrasound suprvsn of normal -201 Nikky. Provider: Dinesh JOYA, first preg, first 7 700 [place] PO Box [email or web address] weeks Medical [place], 929 1522, gestation of Center [facility], , Mel[place], [place], 120, [place], [id number], [place], [address]. [place], tel: tel: [phone] , [place]. tel: [phone] [facility] Encntr screen for Feb-1 Gurinder Referring In Womens infections w sexl 3-201 Nikky. Provider: Dinesh JOYA, mode of 7 700 Nikky PO Box transmissEncounte Liz Fairchild L, 1522, r for screening Center [address] [place] [address], for oth , [facility], infec/parastc 120, Center [id number], diseasesEncntr [place] [address], [place] for suprvsn of [place], [place], tel: normal first [phone] [place], preg, first , [place]. [id number]. trimesterEncounte tel: tel: r for [phone] screening of weeks gestation of [facility] of the May- Gala Referring In Womens dgstv sys comp Nicci. Provider: Dinesh JOYA, , first 7 700 Nikky PO Box trimester Medical Gurinder L, 1522, Center [facility] [place], , [facility], 120, [place] [id number], [facility], [place] MAJANO, tel: [phone] [place], , [place]. [id number]. tel: tel: [phone] Jono [place] Encntr for chicken hatchery helper Dec- Gala Referring In Womens exam (general) 9- Nicci. Provider: Dinesh JOYA, (routine) w/o abn 6 700 Nikky PO Box findingsPap Smear Medical Gurinder L, 1522, Screening, Center 700 [place], CervixPap Smear , [facility], Screening, Cervix 120, Center [id number], [place], [facility] 120, [place], [place], tel: [phone] [place], , [place]. [id number]. tel: tel: [phone] [facility] Jul- Gala In Womens 1-201 Nicci. [facility], 3 700 PO Box Medical 1522, Center [place], Dr, [facility] [place], 120, [id number], [place], [place], tel: [phone] , [place]. tel: [phone] Family History Family Member Diagnosis Age At Onset No Family history of Family history not known. Patient is adopted. Immunizations Vaccine Date Status Comments Tdap completed Source: New Immunization Record Rhophylac completed Source: New Immunization Record Influenza, injectable, completed Source: Source Unspecified quadrivalent, preservative free, 3 yrs or older Payers Payer name Insurance type Covered constitution party ID Authorization(s) [facility] [id number] [facility] [id number] [facility] [id number] Social History Type Description Quantity Date Captured [...] BOOKED Appointment Darline Marroquin BOOKED Future Order: Radiology Order Ultrasound, OB Limited ([id number]) Ordered Future Order: Lab Order Pap Smear With HPV Reflex If Ordered ASCUS ([id number]) Future Order: Radiology Order Complete OB Ultrasound > 14 Ordered Weeks ([id number]) Future Order: Radiology Order Nuchal Translucency ([id number]) Ordered Date Type Problem Goal Intervention Status [...]
--- OUTSIDE RECORDS SUMMARY | 2017-02-11 00:01 | External Medical Summary | Continuity of Care Document ---
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 (general) - (routine) w/o abn findings Encntr for suprvsn of normal first - [...] poor fetl - grth, 2nd tri, unsp 16 weeks gestation of - Encntr for suprvsn of normal first - preg, second trimester Decreased movements, third - trimester, unsp 38 [...] first trimester 12 weeks gestation of - 12 weeks gestation of - Encntr for suprvsn of normal first - preg, first trimester Type O blood, Rh negative - [...] trimester Type O blood, Rh negative - 37 weeks gestation of - Active Procedures Procedure Date OB Visit No Charge Td, pathgnc orgnsm, screen Results Test Name Date and Time Measure Units Reference Range Abnormal Flag Comments Panel Description: STREPTOCOCCUS, GROUP B CULTURE STREPTOCOCCUS, GROUP B 16:08:00 SEE NOTE STREPTOCOCCUS, GROUP B CULTURE CULTURE MICRO NUMBER: [id number] TEST STATUS: FINAL SPECIMEN SOURCE: VAGINAL/ANORECTAL SPECIMEN QUALITY: ADEQUATE RESULT: No group B Streptococcus isolatedTest performed at [facility] [id number] [place] [address]Ntfdsrok: ONIEL BHANDARI DO,MPH Advance Directives Directive Yes / No Effective Date File Name Unknown Encounters Encounter Practice Location Reason(s) Diagnoses Date Provider Care Team Description For Visit Members [facility] Decreased Dec- Martinez Referring In Womens movements, third 9-201 Kim. Provider: Dinesh JOYA, trimester, unsp38 7 700 Nikky PO Box weeks gestation Medical Gurinder L, 1522, of Center [address] [facility], 120, [place] [id number], [facility], Ivan MAJANO, tel:[phone] [facility] , [place]. [id number]. tel: tel:[phone] Jono [place] Encntr for Gurinder Referring In Womens suprvsn of normal 3-201 Nikky. Provider: Dinesh JOYA, first preg, third 7 700 Nikky PO Box trimesterType O Medical Gurinder L, 1522, blood, Rh Center 700 [place], [email or web address] [facility], gestation of 120, Center [id number], [facility] 120, [place] Ivan MAJANO, tel:[phone] [facility] , [place]. [id number]. tel: tel:[phone] Jono [place] Encntr for Gurinder Referring In Womens suprvsn of normal 6-201 Nikky. Provider: Dinesh JOYA, first preg, third 7 700 Nikky PO Box [email or web address] weeks Medical Gurinder L, 1522, gestation of Center [address] [place] [address], pregnancyType O Meliton Garertt, blood, Rh 120, Center [id number], negative [place], [place] 120, [place] Ivan MAJANO, tel:+ [phone] [place], , [place]. [id number]. tel: tel:[phone] Jono [place] Encntr for Nov-3 Gurinder Referring In Womens suprvsn of normal 1-201 Nikky. Provider: Health PA, first preg, third 7 700 Nikky PO Box [email or web address] weeks Medical Gurinder L, 1522, gestation of Center [address] [place] [address], Mel[place] Garrett, 120, Center [id number], [place], [place] 120, [place] Ivan MAJANO, tel:[phone] [place], , [place]. [id number]. tel: tel: [phone] Jono [place] Partial placenta Nov- Gurinder Referring In Womens Ultrasound previa NOS or 1-201 Nikky. Provider: Health PA, w/out hemorrhage, 7 700 Nikky PO Box third Medical Gurinder L, 1522, trimesterEncntr Center [address] [place] [address], for suprvsn of Mel[place] Garrett, normal first 120, Center [id number], preg, third [place], [place] 120, [place] [id number] weeks Ivan MAJANO, tel:+2 gestation of [phone] [place], , [place]. [id number]. tel: tel:[phone] Jono [place] Encntr for Nov-1 Gurinder Referring In Womens suprvsn of normal 9-201 Nikky. Provider: Health PA, first preg, third 7 700 Nikky PO Box trimesterType O Medical Gurinder L, 1522, blood, Rh Center [address] [place] [address], [email or web address] weeks [place] Garrett, gestation of 120, Center [id number], [place], [place] 120, [place] Ivan MAJANO, tel:+ [phone] [place], , [place]. [id number]. tel: tel:[phone] [facility] Encntr for Mckinley-0 Gurinder Referring In Womens suprvsn of normal 5-201 Nikky. Provider: Health TAON, first preg, third 7 700 Nikky PO Box [email or web address] weeks Medical Gurinder L, 1522, gestation of Center [address] [place] [address], pregnancyType O [place], blood, Rh 120, Center , negative Ivan, [facility] 120, [place] Ivan MAJANO, tel:[phone] [place], , [place]. [id number]. tel: tel:[phone] [facility] Encntr for Gilbert-2 Gurinder Referring In Womens suprvsn of normal 1-201 Nikky. Provider: Health TOAN, first preg, third 7 700 Nikky PO Box [email or web address] weeks Medical Gurinder L, 1522, gestation of Center [address] [place] [address], Mel[place] Garrett, 120, [place] [id number], Ivan, [facility] 120, [place] Ivan MAJANO, tel:[phone] [place], , [place]. [id number]. tel: tel:[phone] [facility] Encntr for September-2 Gurinder Referring In Womens suprvsn of normal 4-201 Nikky. Provider: Dinesh JOYA, first preg, 7 700 Nikky PO Box second Medical Gurinder L, 1522, [email or web address] weeks [address], gestation of Mel[place] Garrett, pregnancyType O 120, [place] [id number], blood, Rh [place], [place] 120, [place] negative Ivan MAJANO, tel:[phone] [place], , [place]. [id number]. tel: tel:[phone] [facility] Encntr for Apr-2 Gurinder Referring In Womens suprvsn of normal 6-201 Nikky. Provider: Dinesh JOYA, first preg, 7 700 Nikky PO Box second Medical Gurinder L, 1522, [email or web address] weeks [address], gestation of Mel[place] Garrett, pregnancyType O 120, [place] [id number], blood, Rh [place], [place] 120, [place] negative Ivan MAJANO, tel: [phone] [place], , [place]. [id number]. tel: tel: [phone] Jono [place] Matern care for Apr-2 Gurinder Referring In Womens Ultrasound oth or susp poor 6-201 Nikky. Provider: Dinesh JOYA, fetl grjared, 2nd 7 700 [place] PO Box tri, unsp20 weeks Medical [place], 929 1522, gestation of Center N [facility], , Mel[place], [place], 120, [place], [id number], [place], [address]. [place], tel: tel:[phone] , [place]. tel: [phone] Jono [place] Matern care for Mar-2 Gurinder Referring In Womens oth or susp poor 7-201 Nikky. Provider: Dinesh JOYA, fetl grjared, 2nd 7 700 Nikky PO Box tri, [email or web address] weeks Medical Gurinder L, 1522, gestation of Center [address] [place] [address], pregnancyEncntr [place] Garrett, for suprvsn of 120, [place] , normal first [place] 120, [place] preg, second Ivan MAJANO, tel: trimester [phone] [place], , [place]. [id number]. tel: tel: [phone] Jono [place] 12 weeks Feb-2 Gurinder Referring In Womens gestation of 7-201 Nikky. Provider: Dinesh JOYA pregnancyEncntr 7 700 Nikky PO Box for suprvsn of Medical Gurinder L, 1522, normal first [address], preg, first Mel[place] Garrett, trimesterType O 120, [place] , blood, Rh Ivan, [place] 120, [place] negative Ivan MAJANO, tel:[phone] [place], , [place]. [id number]. tel: tel: [phone] Jono [place] Encntr for Feb-2 Gurinder Referring In Womens Ultrasound suprvsn of normal 7-201 Nikky. Provider: Health PA, first preg, first 7 700 [place] PO Box [email or web address] weeks Medical [place], 929 1522, gestation of Center N [facility], Mel[place], [place], 120, [place], [id number], [place], [address]. [place], tel: tel: [phone] , [place]. tel: [phone] Jono [place] Encntr screen for Gurinder Referring In Womens infections w sexl 3-201 Nikky. Provider: Dinesh JOYA, mode of 7 700 Nikky PO Box transmissEncounte Medical Gurinder L, 1522, r for screening Center [address] [place] [address], for oth , [facility] Liz MAJANO, infec/parastc 120, [place] , diseasesEncntr Ivan [facility] 120, [place] for suprvsn of Ivan MAJANO, tel: normal first [place], preg, first , [place]. [id number]. trimesterEncounte tel: tel: r for [phone] screening of [email or web address] weeks gestation of [facility] the [place]ala Referring In Womens dgstv sys comp Nicci. Provider: Dinesh JOYA, , first 7 700 Nikky PO Box trimester Medical Gurinder L, 1522, Center [facility] Jamal, [place], 120, [place] [id number], Ivan [facility] 120, [place] Ivan MAJANO, tel:[phone] [place], , [place]. [id number]. tel: tel: [phone] Jono [place] Pap Smear Gala Referring In Womens Screening, - Nicci. Provider: Dinesh JOYA, CervixPap Smear 6 700 Nikky PO Box Screening, Medical [facility] L, 1522, CervixEncntr for Center 700 [place], plant wire chief exam [place] Garrett, (general) 120, [place] [id number], (routine) w/o abn Ivan [facility] 120, [place] findings Ivan MAJANO, tel:[phone] [place], , [place]. [id number]. tel: tel: [phone] [facility] Gala In Womens 1-201 Nicci. [facility], 3 700 [facility] 1522, [place] Dr Jamal, [place], 120, [id number], [place], [place], tel: [phone] , . tel: [phone] Family History Family Member Diagnosis Age At Onset No Family history of Family history not known. Patient is adopted. Immunizations Vaccine Date Status Comments Tdap completed Source: New Immunization Record Rhophylac completed Source: New Immunization Record Influenza, injectable, completed Source: Source Unspecified quadrivalent, preservative free, 3 yrs or older Payers Payer name Insurance type Covered republican ID Authorization(s) [facility] [id number] [facility] [id number] [facility] [id number] Social History Type Description Quantity Date Captured [...] Complete OB Ultrasound > 14 Ordered Weeks ([id number]) Future Order: Radiology Order Ultrasound, OB Limited ([id number]) Ordered Future Order: Radiology Order Nuchal Translucency ([id number]) Ordered Date Type Problem Goal Intervention Status [...]
--- OUTSIDE RECORDS SUMMARY | 2017-02-11 00:01 | External Medical Summary | Continuity of Care Document ---
:1990 Author Organization [facility] Address [address] [place], [place] [id number] Phone Care Team Providers Name Role Phone [...] of normal first - preg, third trimester 32 weeks gestation of - Type O blood, Rh negative - Encntr for polls or surveys interviewer exam (general) - (routine) w/o abn findings [...] negative - 30 weeks gestation of - Procedures Procedure Date [...] preg, third 7 700 Nikky [address] [email or web address] weeks Medical Gurinder L, 1522, gestation of Center [address] [place] [address], [place] Garrett, 120, Center [id number], Love, [facility] 120, [place] Ivan MAJANO, tel:[phone] [place], , [place]. [id number]. tel: tel:[phone] Jono Love Partial placenta Mckinley-3 Gurinder Referring In Womens Ultrasound previa NOS or 1-201 Nikky. Provider: Health PA, w/out hemorrhage, 7 700 Nikky [address] third Medical Gurinder L, 1522, trimesterEncntr Center [address] [place] [address], for suprvsn of Meliton Garrett, normal first 120, Center [id number], preg, third Love, [facility] 120, [place] weeks Ivan MAJANO, tel:[phone] gestation of [phone] [place], , [place]. [id number]. tel: tel:[phone] Jono Love Encntr for Mckinley-1 Gurinder Referring In Womens suprvsn of normal 9-201 Nikky. Provider: Health TOAN, first preg, third 7 700 Nikky PO Box weeks Medical Gurinder L, 1522, gestation of Center [address] [place] [address], pregnancyType O Mel[place] Garrett, blood, Rh 120, Center [id number], negative Love, [facility] 120, [place] Ivan MAJANO, tel:[phone] [place], , [place]. [id number]. tel: tel:[phone] Jono Love Encntr for Mckinley-0 Gurinder Referring In Womens suprvsn of normal 5-201 Nikky. Provider: Health PA, first preg, third 7 700 Nikky PO Box trimesterType O Medical Gurinder L, 1522, blood, Rh Center [address] [place] [address], [email or web address] weeks Meliton Garrett, gestation of 120, Center [id number], [place], [place] 120, [place] Ivan MAJANO, tel:[phone] [place], , [place]. [id number]. tel: tel:[phone] Jono Love Encntr for Gilbert-2 Gurinder Referring In Womens suprvsn of normal 1-201 Nikky. Provider: Dinesh JOYA, first preg, third 7 700 Nikky [address] [email or web address] weeks Medical Gurinder L, 1522, gestation of Center 700 [place], Mel[place] Garrett, 120, Center [id number], Ivan [facility] 120, [place] Ivan MAJANO, tel:[phone] [place], , [place]. [id number]. tel: tel:[phone] Jono Love Encntr for May-2 Gurinder Referring In Womens suprvsn of normal 4-201 Nikky. Provider: Dinesh JOYA, first preg, 7 700 Nikky PO Box second Medical Gurinder L, 1522, [email or web address] weeks Center 700 [place], gestation of Meliton Garrett, pregnancyType O 120, Center [id number], blood, Rh Ivan, [facility] 120, [place] negative Ivan MAJANO, tel:[phone] [place], , [place]. [id number]. tel: tel:[phone] Jono Love Encntr for Apr-2 Gurinder Referring In Womens suprvsn of normal 6-201 Nikky. Provider: Dinesh JOYA, first preg, 7 700 Nikky PO Box second Medical Gurinder L, 1522, [email or web address] weeks Center 700 [place], gestation of Meliton Garrett, pregnancyType O 120, Center [id number], blood, Rh Ivan, [place] 120, [place] negative Ivan MAJANO, tel:[phone] [place], , [place]. [id number]. tel: tel:[phone] Jono Love Matern care for Apr-2 Gurinder Referring In Womens Ultrasound oth or susp poor 6-201 Nikky. Provider: Dinesh JOYA, fetl meghan, 2nd 7 700 [place] PO Box tri, [email or web address] weeks Medical [place], 929 1522, gestation of Center N [facility], Meliton Garrett [place], 120, [place], , [place], [address]. [place], tel:[phone] tel: [phone] , [place]. tel: [phone] Jono Love Matern care for Mar-2 Gurinder Referring In Womens oth or susp poor 7-201 Nikky. Provider: Dinesh JOYA, fetl grth, 2nd 7 700 Nikky PO Box tri, unspEncntr Medical Gurinder L, 1522, for suprvsn of Center [address] [place], normal first Dr [facility] Liz MAJANO, preg, second 120, [place] [id number], [email or web address] weeks Love, [facility] 120, [place] gestation of NE, Ivan, tel: [phone] [place], , [place]. [id number]. tel: tel: [phone] Jono Love Encntr for Feb-2 Gurinder Referring In Womens suprvsn of normal 7-201 Nikky. Provider: Dinesh JOYA, first preg, first 7 700 Nikky PO Box [email or web address] weeks Medical Gurinder L, 1522, gestation of Center [address] [place] [address], pregnancyType O Dr [facility] Liz MAJANO, blood, Rh 120, [place] [id number], negative Love, [facility] 120, [place] Ivan MAJANO, tel: [phone] [place], , [place]. [id number]. tel: tel: [phone] Jono Love Encntr for Feb-2 Gurinder Referring In Womens Ultrasound suprvsn of normal 7-201 Nikky. Provider: Dinesh JOYA, first preg, first 7 700 [place] PO Box [email or web address] weeks Medical [place], 929 1522, gestation of Center N [facility], , Mel[place] Smith, [place], 120, [place], [id number], [place], [id number]. [place], tel: tel: [phone] , [place]. tel: [phone] Jono Love Encntr screen for Feb-1 Gurinder Referring In Womens infections w sexl 3-201 Nikky. Provider: Dinesh JOYA, mode of 7 700 Nikky PO Box transmissEncounte Medical Gurinder L, 1522, r [facility], for [facility]th , [facility], infec/parastc 120, Center [id number], diseasesEncntr [place] [address], for suprvsn of Ivan MAJANO, tel:[phone] normal first [phone] [place], preg, first , [place]. [id number]. trimesterEncounte tel: tel:[phone] r for [phone] screening of [email or web address] weeks gestation of [facility] May- Gala Referring In Womens dgstv sys comp - Nicci. Provider: Dinesh JOYA, , first 7 700 Nikky PO Box trimester Medical Gurinder Fu, 1522, Center [facility] [place], , [facility], 120, [place] [id number], [place] [address], Ivan MAJANO, tel:[phone] [place], , [place]. [id number]. tel: tel: [phone] Jono Love Encntr for polls or surveys interviewer Gala Referring In Womens exam (general) - Nicci. Provider: Dinesh JOYA, (routine) w/o abn 6 700 Nikky PO Box findingsPap Smear Liz Fu, 1522, Screening, [facility], [facility] , [facility], Screening, Cervix 120, Center [id number], [place] [address], Ivan MAJANO, tel:[phone] [place], , [place]. [id number]. tel: tel: [phone] Jono Love Jul- Gala In Womens -201 Nicci. Dinesh JOYA, 3 700 PO Box Medical 1522, [place] Dr Jamal, [facility], 120, [id number] Landry, [place], tel:[phone] , [place]. tel: [phone] Family History Family Member Diagnosis Age At Onset No Family history of Family history not known. Patient is adopted. Immunizations Vaccine Date Status Comments Tdap completed Source: New Immunization Record Rhophylac completed Source: New Immunization Record Influenza, injectable, completed Source: Source Unspecified quadrivalent, preservative free, 3 yrs or older Payers Payer name Insurance type Covered democrat ID Authorization(s) [facility] [place] [id number] [facility] [place] [id number] [facility] [place] [id number] Social History Type Description Quantity Date Captured [...] Complete OB Ultrasound > 14 Ordered Weeks (05017) Future Order: Radiology Order Ultrasound, OB Limited ([id number]) Ordered Future Order: Radiology Order Nuchal Translucency ([id number]) Ordered Date Type Problem Goal Intervention Status [...]
[2017-02-11] MEDS ORDERED: CARBOPROST 250 MCG/ML INJECTION IM PRN (00:05)
[2017-02-11] MEDS ORDERED: CALCIUM CARBONATE Chewable 500mg TABLET PO PRN (00:05)
[2017-02-11] MEDS ORDERED: LIDOCAINE 1% (10mg/ml) 2mL INJ PF SDV ID PRN (00:05)
[2017-02-11] MEDS ORDERED: METHYLERGONOVINE 0.2 MG/ML INJECTION IM PRN (00:05)
[2017-02-11] MEDS ORDERED: MAG-AL + SIM ORAL LIQUID 30ml PO PRN (00:05)
[2017-02-11] MEDS ORDERED: ACETAMINOPHEN 500 MG TABLET PO PRN ×2 (00:05→21:12)
[2017-02-11] MEDS: LR 1,000 ML IV PRN ×5 (00:53→18:32)
[2017-02-11 00:54] VITALS: BMI 34.5
[2017-02-11] MEDS ORDERED: OXYTOCIN DRIP 30 UNIT/500 ML ML IV PRN (02:59)
[2017-02-11] MEDS: D5LR 1,000 ML IV PRN ×2 (03:00→12:40)
--- NOTE | 2017-02-11 07:53 | Anesthesia Preoperative Report ---
Anesthesia Epidural/Spinal Rec - Date and Time Date: 02/11/17 Preoperative Diagnosis: spont labor Procedure: Labor Epidural Plan: Epidural - Vital Signs /Para: P:0 Heart Rate: 142 - Medictaions & Allergies Inpatient Medications: Current Medications Acetaminophen (Tylenol) 500 - 1,000 mg PO Q4H PRN PRN Reason: Pain Al Hydroxide/Mg Hydroxide (Maalox Plus) 30 ml PO Q3H PRN PRN Reason: Indigestion Calcium Carbonate (Tums) 500 - 1,000 mg PO Q2H PRN PRN Reason: Indigestion Carboprost Tromethamine (Hemabate) 250 mcg IM O PRN PRN Reason: .Downtime Lactated Ringer's (Lactated Ringers) 1,000 mls @ 999 mls/hr IV .Q1H1M PRN Last Admin: 02/11/17 07:46 Dose: 999 mls/hr Dextrose/Lactated Ringer's (Dextrose 5%-Lactated Ringers) 1,000 mls @ 125 mls/ hr IV .Q8H PRN PRN Reason: Labor Last Admin: 02/11/17 03:00 Dose: 125 mls/hr Oxytocin (Pitocin Drip) 30 unit in 500 mls @ 2 mls/hr IV .Q24H PRN; Protocol PRN Reason: Induction/Augmentation Last Admin: 02/11/17 03:00 Dose: 2 mls/hr Lidocaine HCl (Xylocaine-Mpf 1% Vial) 0.2 mg ID O PRN PRN Reason: IV Start Methylergonovine Maleate (Methergine) 0.2 mg IM O PRN Misoprostol (Cytotec) 800 mcg OK ONCE PRN Ondansetron HCl (Zofran) 4 mg IVP Q4H PRN PRN Reason: Nausea &/or vomiting Allergies/Adverse Reactions: Allergies Allergy/AdvReac Type Severity Reaction Status Date / Time No Known Allergies Allergy Verified 01/21/17 12:02 - Home Medications Home Medications: Home Medications Medication Instructions Recorded Confirmed Type Omeprazole 20 mg PO DAILY 01/21/17 01/21/17 History Pnv No.95/Ferrous Fum/Folic AC 1 tab PO DAILY 01/21/17 01/21/17 History [ Tablet] Zantac 75 75 mg PO BID 01/21/17 01/21/17 History - Medical History Respiratory: DENIES: Asthma, Bronchitis, Chronic Obstructive Pulmonary Disease (COPD), Dyspnea, Orthopnea, Pulmonary Embolism, Pneumonia, Upper Respiratory Infection, Pulmonary Edema, Sleep Apnea, Tuberculosis, Other Cardiovascular: DENIES: Abnormal EKG, Angina, Arrhythmia, Congestive Heart Failure, Coronary Artery Disease, Heart Murmur, Hypertension, Hypotension, High Cholesterol, Myocardial Infarction, Rheumatic Fever, Valvular Heart Disease, Other Gastrointestional: Reports: Gastroesophageal Reflux Disease Neuro/Musculoskeletal: Denies: HX.MS.OSAR, Back Problems, Cerebrovascular Accident, Depression, Headaches, Loss of Consciousness, Muscle Weakness, Neuromuscular Disorder, Paralysis, Paresthesia, Syncope, Seizures, Other Renal/Endocrine: DENIES: Diabetes Mellitus Type 1, Diabetes Mellitus Type 2, Renal Failure, Dialysis, Thyroid Disease, Weight Loss, Weight Gain, Other Other History: DENIES: Anesthesia Reactions, Now, Blood Transfusions, Chemotherapy , Cancer, Hemophilia, Malignant Hyperthermia, Sickle Cell Disease, Other - Surgical History Anesthesia Reactions: None Hx Family Anesthesia Reaction: No History of Motion Sickness: No - Social History Smoking Status: Never smoker Substance Use Type: does not use Alcohol Intake Frequency: does not drink - Pertinent Findings Lab Data: CBC and BMP 02/11/17 00:53 EKG Rhythm: Normal Sinus Rhythm - Physical Exam Respiratory Exam: lungs clear, bilateral breath sounds equal Cardiovascular Exam: regular rate and rhythm, no murmur - Airway Assessment Mallampati Score: II TMD: 3 Fingerbreadths Neck Extension: good Overall Assessment: may be difficult intubation - ASA ASA Score: 2 - Discussion Discussion: Discussed risks/options/alternatives of anesthesia and questions answered. Patient consents. Nursing pain assessment noted. Anesthesia Discussion: spouse Attestation Statement: Prior to the delivery of any anesthetic medication, I examined the patient, developed the plan, obtained the patient's consent and discussed the risk and benefits of the procedure with the patient/guardian.
--- NOTE | 2017-02-11 08:58 | OB/GYN Progress Note ---
- Pain Control Pain control: Epidural - Pelvic Exam Dilation (cm): 1 Effacement (%): 80 station: -3 Amniotic membrane status: Ruptured Comments: FB placed without difficulty - Contractions Monitor mode: External Contraction pattern: Regular Contraction intensity: Moderate - Status status: Category l - Assessment and Plan Assessment: induction ongoing (Pitocin at 20 hold until FB is out) Plan: continuous present management (Expect vaginal delivery)
[2017-02-11] MEDS: ONDANSETRON 4 MG/2 ML INJECTION IVP PRN ×2 (13:15→18:34)
[2017-02-11] MEDS ORDERED: SUFentanil 50 MCG, ROPIVACAINE 0.2% 2MG/ML INJ 40 MG in NS 100 ML EPI ONE (14:35)
[2017-02-11] MEDS ORDERED: CEFAZOLIN PREMIX (MC ONLY) 2 GM/50 ML BAG IV ONE (18:18)
[2017-02-11] MEDS ORDERED: CITRIC ACID/SODIUM CITRATE 30ml PO ONE (18:18)
[2017-02-11] MEDS ORDERED: FAMOTIDINE PB 20 MG/50 ML BAG IV ONE (18:18)
[2017-02-11] MEDS ORDERED: TRANEXAMIC ACID 1,000 MG in NS 100 ML IV ONE (18:21)
--- NOTE | 2017-02-11 18:24 | Progress Note ---
OB PP Progress Note Free Text - Date Date: 02/11/17 - Progress Note Progress Note: Cervix without change despite adequate contractions by IUPC. I reviewed this with patient and her and recommended . We reviewed the surgery , potential risks. She has asked appropriate questions and agrees with plan for .
[2017-02-11] MEDS ORDERED: AZITHROMYCIN IV 500 MG in NS 250ml 250 ML IV ONE (18:30)
[2017-02-11] MEDS ORDERED: OXYTOCIN BOLUS BAG 30 UNIT/500 ML ML IV SCH (19:09)
[2017-02-11] MEDS ORDERED: LIDOCAINE 1.5% W/EPI 1:200,000 30ml SDV PF ONE (19:18)
[2017-02-11] MEDS ORDERED: EPHEDRINE 50mg/ml INJECTION ONE (19:18)
[2017-02-11] MEDS ORDERED: ONDANSETRON 4 MG/2 ML INJECTION ONE (19:18)
[2017-02-11] MEDS ORDERED: MORPHINE SULFATE PF 5mg/10ml INJ (Duramorph) ONE (19:25)
[2017-02-11] MEDS ORDERED: METOCLOPRAMIDE 10mg/2ml INJECTION IVP PRN (21:12)
[2017-02-11] MEDS ORDERED: HYDROCORTISONE 2.5% CREAM 30gm RECTALLY PRN (21:12)
[2017-02-11] MEDS ORDERED: OXYTOCIN DRIP 30 UNIT/500 ML ML IV SCH (21:12)
[2017-02-11] MEDS ORDERED: CALCIUM CARBONATE Chewable 500mg TABLET PO ONE (21:12)
[2017-02-11] MEDS ORDERED: DiphenhydrAMINE 25 MG CAPSULE PO PRN (21:12)
[2017-02-11] MEDS ORDERED: SALINE FLUSH 10ml SYRINGE IV PRN (21:12)
[2017-02-11] MEDS ORDERED: SIMETHICONE 80 MG CHEWABLE TABLET PO PRN (21:12)
[2017-02-11] MEDS ORDERED: RHOPHYLAC - PHARMACY CONSULT MC ONE (21:12)
[2017-02-11] MEDS: HYDROCODONE/APAP 5mg/325mg TABLET PO PRN ×2 (21:13→22:18)
[2017-02-11] MEDS: IBUPROFEN 800 MG TABLET PO SCH (21:13)
[2017-02-11] MEDS: D5LR 1,000 ML IV SCH (22:19)
[2017-02-11] MEDS: SIMETHICONE 80 MG CHEWABLE TABLET PO SCH (22:19)
[2017-02-12] MEDS ORDERED: ONDANSETRON 4 MG/2 ML INJECTION IVP PRN (04:59)
[2017-02-12] MEDS: ONDANSETRON 4 MG/2 ML INJECTION IVP PRN (04:59)
[2017-02-12] MEDS: IBUPROFEN 800 MG TABLET PO SCH ×3 (05:04→23:37)
--- NOTE | 2017-02-12 08:18 | Pharmacy Consult ---
Pharmacy Consult-Rhophylac - Laboratory Information 02/11/17 02/11/17 02/11/17 00:53 21:20 22:08 Hgb /Adult Ratio 0.0000 Blood Type O Negative RhIG Candidate? Is a candidate Rh FACTOR CONSULT: Mother Blood Type = O negative Darline Marroquin [id number] Child Blood Type = A positive Cm Marroquin [id number] Hgb / Adult Ratio = 0,0000 Will give Rho D Immunglobulin 300mcg IV x 1 dose. Thank you, Chris Mathias, Pharmacist.
[2017-02-12] MEDS ORDERED: RHO(D) IMMUNE GLOBULIN 300 MCG/2 ML INJECTION IVP ONE (08:19)
[2017-02-12] MEDS: SIMETHICONE 80 MG CHEWABLE TABLET PO SCH ×4 (08:44→22:13)
[2017-02-12] MEDS: DOCUSATE CALCIUM 240 MG CAPSULE PO SCH (08:44)
--- NOTE | 2017-02-12 09:03 | Anesthesia Postoperative Note ---
- Date and Time Date: 02/12/17 Time: 09:02 - Status Patient Participated in Evaluation: Patient Participated in Person Vital Signs: Temperature 98.6 F 02/12/17 07:00 Pulse Rate 96 02/12/17 07:00 Respiratory Rate 16 02/12/17 07:00 Blood Pressure 120/68 02/12/17 07:00 Pulse Oximetry 94 02/12/17 07:00 Respiratory Function: Airway Patent Cardiovascular Function: Regular Pulse EKG Rhythm: Normal Sinus Rhythm Mental Status: Alert and Oriented Hydration: Taking PO Fluids Complications During Recover: None Apparent Post Anesthesia Care Notes: Still with some N/V over night feeling better intermittently. Pain under control. - Follow-Up Instructions Instructions: Per Surgeon
[2017-02-12] MEDS: D5LR 1,000 ML IV SCH (09:56)
--- NOTE | 2017-02-12 09:56 | OB/GYN Progress Note ---
OB-PP Progress Note - General POD:: POD1 Maternal Group B Strep: Negative Maternal blood type: O- Maternal Rubella Status: Immune - Subjective Date: 02/12/17 Lochia: Minimal Pain: contolled Voiding: benavidez still in place Nausea or Vomiting Present: Yes (last emesis around 0530) - Objective Vital Signs: Last Vital Signs Temp 98.6 F 02/12/17 07:00 Pulse 96 02/12/17 07:00 Resp 16 02/12/17 07:00 BP 120/68 02/12/17 07:00 Pulse Ox 94 02/12/17 07:00 Urine Output: good General: alert and oriented Abdomen: fundus firm, non-tender Incision: dry, dressed Extremities: non-tender Edema: none Laboratory: Laboratory Results - last 24 hr 02/11/17 02/11/17 02/12/17 21:20 22:08 07:18 WBC 19.1 H D RBC 3.94 L Hgb 11.2 L Hct 34.1 L MCV 86.5 MCH 28.4 MCHC 32.8 RDW Std Deviation 43.3 Plt Count 277 MPV 10.2 Hgb /Adult Ratio 0.0000 RhIG Candidate? Is a candidate - Assessment Assessment: SP, Primary C/S - Plan Plan: routine care
--- NOTE | 2017-02-12 13:55 | Operative Note ---
DATE OF OPERATION 02/11/2017 PREOPERATIVE DIAGNOSIS Arrest of dilatation. POSTOPERATIVE DIAGNOSIS Arrest of dilatation. PROCEDURE Primary low transverse section. SURGEON Nikky Fairchild MD ONSHORE DIVER Stevie Anaya, [employer] ANESTHESIA Continuous epidural IOS ARCHITECT Jacob Perera CRNA EBL 600 mL DESCRIPTION OF PROCEDURE Mrs. Marroquin was brought to the OR and placed on the OR table in the comfortable supine position. A Branham catheter had previously been placed to dependent drain. Her regional analgesia was brought up to adequate surgical levels. There was left lateral displacement. The abdomen was prepped and draped in the usual sterile fashion. A Pfannenstiel skin incision was made with a sharp knife. This was carried down to fascia. Fascia was incised transversely. Fascia was tented up. This was bluntly and sharply dissected free of rectus muscles. Rectus muscles were bluntly divided. Peritoneum was tented up and sharply entered. This was extended vertically. We then placed the bladder blade and vesicouterine fold of peritoneum was tented up and incised transversely. A bladder flap was then bluntly created. A low transverse uterine incision was made with a sharp knife. There was clear amniotic fluid. We had quite a bit of difficulty getting the baby out of the pelvis and used the Vector blade, placing it carefully under the baby's head and elevating the head and then we were able to deliver the baby in total. This is a liveborn female with Apgars of 5/9/9. She weighed 8 pounds, 1.9 ounces. I believe the initial low was simply due to the difficulty in delivery. She did recover fortunately very quickly. We then doubly clamped the cord and cut it and gave the baby to Dr. Sinha and his team for care. The placenta was then expelled intact. It had a normal configuration and normal- appearing three-vessel cord. The uterus was exteriorized and we swept the cavity clear of membranes. The myometrial incision was then reapproximated with a running locking 0 Monocryl, We inspected carefully for hemostasis. It was under good control. We examined uterus, tubes and ovaries. They were normal and were returned to the abdominal cavity. We then reapproximated peritoneum with a running nonlocking 2-0 Vicryl. Fascia was reapproximated with a running nonlocking 0 Vicryl. Skin edges were reapproximated with a subcuticular style 3-0 undyed Vicryl. The wound was dressed with Steri-Strips and sterile dressing. Counts were correct postoperatively x2 and the urine remained clear and free-flowing throughout the procedure. Mrs. Marroquin was then transferred to recovery in stable condition. ELVIRA
[2017-02-12] MEDS: HYDROCODONE/APAP 5mg/325mg TABLET PO PRN ×2 (18:37→22:13)
[2017-02-13] MEDS: IBUPROFEN 800 MG TABLET PO SCH ×2 (08:26→16:39)
[2017-02-13] MEDS: HYDROCODONE/APAP 5mg/325mg TABLET PO PRN ×3 (08:27→21:35)
[2017-02-13] MEDS: DOCUSATE CALCIUM 240 MG CAPSULE PO SCH (08:28)
--- NOTE | 2017-02-13 11:48 | OB/GYN Progress Note ---
OB-PP Progress Note - General POD:: POD2 Maternal Group B Strep: Negative Maternal blood type: O- Maternal Rubella Status: Immune - Subjective Date: 02/13/17 Lochia: Minimal Pain: contolled Voiding: voiding Nausea or Vomiting Present: No - Objective Vital Signs: Last Vital Signs Temp 97.8 F 02/13/17 08:29 Pulse 79 02/13/17 08:29 Resp 16 02/13/17 08:29 BP 123/78 02/13/17 08:29 Pulse Ox 97 02/13/17 08:29 General: alert and oriented Abdomen: fundus firm, non-tender Incision: normal Extremities: non-tender - Assessment Assessment: SP, Primary C/S - Plan Expected date of discharge: 02/14/17
--- NOTE | 2017-02-13 11:51 | Discharge Instructions ---
Discharge Plan - Med Rec/Dispo Prescriptions: New Hydrocodone/APAP 5/325 [[place] 5/325] 1 - 2 tab PO Q4H PRN #30 tab PRN Reason: Pain Ibuprofen [Motrin] 800 mg PO Q8H #40 tab Docusate Calcium [Surfak] 240 mg PO DAILY #30 cap No Action Omeprazole 20 mg PO DAILY Pnv No.95/Ferrous Fum/Folic AC [ Tablet] 1 tab PO DAILY Zantac 75 75 mg PO BID
[2017-02-13] MEDS: SIMETHICONE 80 MG CHEWABLE TABLET PO SCH ×2 (20:46→21:14)
[2017-02-13 21:02] VITALS: O2SAT 97
[2017-02-14] MEDS: SIMETHICONE 80 MG CHEWABLE TABLET PO SCH ×2 (01:35→09:33)
[2017-02-14] MEDS: HYDROCODONE/APAP 5mg/325mg TABLET PO PRN ×2 (03:16→09:32)
[2017-02-14] MEDS: IBUPROFEN 800 MG TABLET PO SCH ×2 (03:17→11:45)
[2017-02-14 09:03] VITALS: BP 135/80; PULSE 76; RESP 18; TEMP 98.3
[2017-02-14] MEDS: DOCUSATE CALCIUM 240 MG CAPSULE PO SCH (09:32)
== END 2017-02-14 12:45 | disposition home or self-care (01) | DRG 766 ==
LOC: EDBD → MC 02-10 23:54
PROVIDERS: ADMIT Obstetrics & Gynecology; ATTEND Obstetrics & Gynecology